=== PATIENT | male | born 1940 | race Caucasian/White ===

== ENCOUNTER 2019-10-06 10:24 | Outpatient (RCR) | payer MEDICARE, SELFPAY ==
--- NOTE | 2019-10-06 10:55 | PTOPEVAL ---
Thank you for referring this patient to [facility]. Please review, sign, date and return this plan of care [facility]. I agree with and certify that the following plan of care is medically necessary. Referring Physician Date Admitting Provider: Attending Provider: PHYSICIAN NOT ON STAFF Referring Provider: *PT Outpatient Evaluation Start: 10/06/19 10:15 Freq: Status: Active Protocol: Document 10/06/19 10:15 Charmaine (Rec: 10/06/19 10:42 [facility] [id number]) Therapy Assessment Status Assessment Status Assessment Status Evaluation Evaluation Information Problem Diagnosis R shoulder adhesive capsulitis Onset 09/28/19 Subjective Information patient reports he has been Query Text:As Reported By Patient/ having pain in the R shoudler Family for about 6 months or more. he reports no injury. he reports the pain gradual began coming on to the R side. he reports he does go to the gym. he reports he noticed he was having trouble lifting his arm and went to the MD. He reports he is improved, but the affects of the shot have worn off. he reports no imaging of the R shoulder. Prior Level of Function Comments Additional Prior Level of Function patient reports prior to his Comments inability to move the L shoulder, he was able to complete all activities reaching over head. he reports he has been unable to perfrom overhead lifting activities in the gym. Pain Assessment Timing of Pain Assessment Timing of Pain Assessment Assessment Pain Scale Pain Scale Used Numeric (1 - 10) Self Report Pain Assessment Right Shoulder(s) Reported Pain Level 6 Pain Description Aching,Sharp Pain Frequency Chronic,Continuous Current Pain Intensity 6 Lowest Pain Intensity 6 Greatest Pain Intensity 6 Pain Aggravating Factors Changing Position,Exercise/ Activity,Lifting Pain Score Pain Score 6: Self Report Upper Extremity Range of Motion Scapular/ Shoulder Range of Motion Right Shoulder Flexion - Active 105 Shoulder Flexion - Passive 140 Shoulder Medial Rotation - Active -5 Shoulder Medial Rotation - Passive 0 Shoulder Medial Rotation - Activ
== END 2019-10-21 14:47 | disposition home or self-care (01) ==
LOC: CHSPT 10:24
DX: M75.01 Adhesive capsulitis of right shoulder (principal)
CPT/HCPCS: 97014; 97110; 97140; 97161; 97530; G0283